=== PATIENT | female | born 1965 | race Two or more races ===

== ENCOUNTER 2016-05-16 02:24 | Emergency (ER) | payer OTHER ==
[~2016-05-16] VITALS: Ht 162.6 cm; Wt 72.6 kg
[2016-05-16 02:52] VITALS: BP 143/80
[2016-05-16] MEDS ORDERED: IBUPROFEN 600 MG TABLET PO ONE (03:09)
[2016-05-16] MEDS: IBUPROFEN 600 MG TABLET PO ONE (03:13)
== END 2016-05-16 04:19 | disposition home or self-care (01) ==
LOC: ER 02:31
DX: R07.89 Other chest pain (principal)
CPT/HCPCS: 71010-TC; A4606; Z7610

== ENCOUNTER 2016-06-09 11:22 | Emergency (ER) | payer SELFPAY ==
[~2016-06-09] VITALS: Ht 162.6 cm; Wt 63.5 kg
[2016-06-09 11:29] VITALS: BP 140/94
[2016-06-09] MEDS ORDERED: IBUPROFEN 400 MG TABLET ONE (11:41)
[2016-06-09] MEDS ORDERED: IBUPROFEN 400 MG TABLET PO ONE (12:00)
== END 2016-06-09 11:50 | disposition home or self-care (01) ==
LOC: ER 11:25
DX: S39.012A Strain of muscle, fascia and tendon of lower back, initial encounter (principal); S29.012A Strain of muscle and tendon of back wall of thorax, initial encounter; V43.52XA Car driver injured in collision with other type car in traffic accident, initial encounter; Y93.89 Activity, other specified; Y92.488 Other paved roadways as the place of occurrence of the external cause; Y99.8 Other external cause status
CPT/HCPCS: 99283; A4606; Z7610